=== PATIENT | male | born 1950 | race Two or more races ===

== ENCOUNTER → 2017-03-31 | Outpatient (CLI) | payer BC ==
[~2017-03-31] MED LIST: LIS20T GT; METF-370 PO; [UNRECOGNIZED DRUG - OTHER]; crestor
[2017-03-31 10:00] LABS: Basophils # (auto) 0 uL; Basophils % (auto) 0.7 % (0.0-2.0); Eosinophils # (auto) 0.1 uL; Eosinophils % (auto) 2.4 % (0.0-7.0); Hematocrit 45.6 % (41.0-53.0); Hemoglobin 15.1 g/dL (13.5-17.5); Lymphocytes # (auto) 2.1 uL; Lymphocytes % (auto) 33.9 % (10.0-50.0); Mean Corpuscular Hemoglobin 29.5 pg (28.0-32.0); Mean Corpuscular Hgb Conc. 33.1 g/dL (32.0-36.0); Mean Corpuscular Volume 89.1 fL (80.0-100.0); Monocytes # (auto) 0.6 uL; Monocytes % (auto) 9.1 % (0.0-12.0); Neutrophils # (auto) 3.4 uL; Neutrophils % (auto) 53.9 % (37.0-80.0); Nucleated Red Blood Cells % 0.1 %; Platelet Count (auto) 311 10^3/uL (140-450); Red Blood Cells 5.12 10^6/uL (4.5-5.90); Red Cell Distribution Width 13.5 % (11.8-14.3); White Blood Cell 6.3 10^3/uL (4.4-10.8)
[2017-03-31 10:01] LABS: Urine Bacteria NONE SEEN /hpf (None Seen); Urine Blood Negative /uL (Negative); Urine Specific Gravity 1.015 (1.001-1.035); Urine WBC <1 /hpf (0 - 3)
[2017-03-31 10:26] LABS: Albumin 3.9 g/dL (3.4-5.0); BUN/Creatinine Ratio 21.7; Bilirubin, Total 0.6 mg/dL (0.2-1.0); Calcium 9.3 mg/dL (8.5-10.1); Potassium 4.1 mmol/L (3.5-5.1); Total Protein 7.8 g/dL (6.4-8.2)
[2017-03-31 13:58] LABS: Prostate Specific Antigen 1.42 ng/mL (0.0-4.0)
[2017-03-31 14:13] LABS: Free T4 (Free Thyroxine) 1.14 ng/dL (0.89-1.76)
== END | disposition home or self-care (01) ==
LOC: LAB 09:30
PROVIDERS: ATTEND Internal Medicine
DX: E11.9 Type 2 diabetes mellitus without complications (principal); R97.20 Elevated prostate specific antigen [PSA]
CPT/HCPCS: 36415; 80053; 80061; 81001; 82043; 82607; 83036; 84153; 84439; 84443; 85025; 85652

== ENCOUNTER 2017-05-01 06:06 | Emergency (ER) | payer BC ==
[~2017-05-01] VITALS: Ht 160 cm; Wt 71.7 kg
[2017-05-01] MEDS ORDERED: cloNIDine HCL 0.1 MG TAB PO ONE (06:30)
[2017-05-01 06:40] VITALS: BP 189/94
== END 2017-05-01 07:04 | disposition home or self-care (01) ==
LOC: ER 06:11
DX: L03.211 Cellulitis of face (principal)
CPT/HCPCS: 82962

== ENCOUNTER → 2017-05-03 | Outpatient (CLI) | payer BC | END | disposition home or self-care (01) | LOC: XY 09:33 | PROVIDERS: ATTEND Internal Medicine | DX: M79.604 Pain in right leg (principal); E11.9 Type 2 diabetes mellitus without complications; R20.0 Anesthesia of skin | CPT/HCPCS: 93923; 93925 ==

== ENCOUNTER → 2017-09-21 | Outpatient (CLI) | payer BC ==
[2017-09-21 10:21] LABS: Alanine Aminotransferase 30 U/L (16-61); Aspartate Aminotransferase 16 U/L (15-37)
[2017-09-21 15:56] LABS: Cholesterol 197 mg/dL (< 200); HDL Cholesterol 80 mg/dL (40-59); LDL Cholesterol 107 mg/dL (< 100); Triglycerides 65 mg/dL (< 150)
== END | disposition home or self-care (01) ==
LOC: LAB 09:05
PROVIDERS: ATTEND Internal Medicine
DX: E11.9 Type 2 diabetes mellitus without complications (principal); E78.00 Pure hypercholesterolemia, unspecified; I10 Essential (primary) hypertension
CPT/HCPCS: 36415; 80061; 83036; 84450; 84460

== ENCOUNTER → 2018-07-28 | Outpatient (CLI) | payer BC ==
[2018-07-28 11:06] LABS: Urine WBC None Seen /hpf (0 - 3)
[2018-07-28 11:21] LABS: Urine Bacteria NONE SEEN /hpf (None Seen); Urine Blood TRACE /uL (Negative); Urine Mucus FEW (None Seen); Urine Specific Gravity 1.015 (1.001-1.035)
[2018-07-28 12:01] LABS: Albumin 3.9 g/dL (3.4-5.0); Potassium 5.1 mmol/L (3.5-5.1)
[2018-07-28 12:09] LABS: BUN/Creatinine Ratio 22.1; Bilirubin, Total 0.5 mg/dL (0.2-1.0); Calcium 9.8 mg/dL (8.5-10.1); Total Protein 8.1 g/dL (6.4-8.2)
[2018-07-28 12:12] LABS: Free T4 (Free Thyroxine) 1.22 ng/dL (0.89-1.76); Prostate Specific Antigen 1.41 ng/mL (0.0-4.0)
[2018-07-28 18:47] LABS: Basophils # (auto) 0 uL; Basophils % (auto) 0.6 % (0.0-2.0); Eosinophils # (auto) 0.2 uL; Eosinophils % (auto) 2.2 % (0.0-7.0); Hematocrit 50.1 % (41.0-53.0); Hemoglobin 15.9 g/dL (13.5-17.5); Lymphocytes # (auto) 1.9 uL; Lymphocytes % (auto) 26.1 % (10.0-50.0); Mean Corpuscular Hemoglobin 29.5 pg (28.0-32.0); Mean Corpuscular Hgb Conc. 31.7 g/dL (32.0-36.0); Mean Corpuscular Volume 92.9 fL (80.0-100.0); Monocytes # (auto) 0.6 uL; Monocytes % (auto) 8.4 % (0.0-12.0); Neutrophils # (auto) 4.6 uL; Neutrophils % (auto) 62.7 % (37.0-80.0); Nucleated Red Blood Cells % 0.1 %; Platelet Count (auto) 374 10^3/uL (140-450); Red Cell Distribution Width 13.3 % (11.8-14.3); White Blood Cell 7.3 10^3/uL (4.4-10.8)
== END | disposition home or self-care (01) ==
LOC: LAB 10:08
PROVIDERS: ATTEND Internal Medicine
DX: E11.9 Type 2 diabetes mellitus without complications (principal); F52.21 Male erectile disorder
CPT/HCPCS: 36415; 80053; 80061; 81001; 82043; 82607; 83036; 84153; 84403; 84439; 84443; 85025; 85652

== ENCOUNTER 2019-03-05 11:44 | Emergency (ER) | payer BC, OTHER ==
[~2019-03-05] VITALS: Ht 160 cm; Wt 68.0 kg
[2019-03-05 14:59] VITALS: BP 131/74
[2019-03-05] MEDS ORDERED: ACETAMINOPHEN/CODEINE#3 (300/30mg) TAB PO ONE (15:15)
== END 2019-03-05 15:45 | disposition home or self-care (01) ==
LOC: ER 11:45
DX: S80.212A Abrasion, left knee, initial encounter (principal); E11.9 Type 2 diabetes mellitus without complications; I10 Essential (primary) hypertension; E78.00 Pure hypercholesterolemia, unspecified; Z79.899 Other long term (current) drug therapy; W18.39XA Other fall on same level, initial encounter; Y93.89 Activity, other specified; Y92.89 Other specified places as the place of occurrence of the external cause; Y99.0 Civilian activity done for income or pay
CPT/HCPCS: 72220; 73562

== ENCOUNTER → 2020-12-09 | Outpatient (CLI) | payer BC | END | disposition home or self-care (01) | LOC: XY 09:43 | PROVIDERS: ATTEND Internal Medicine | DX: I73.9 Peripheral vascular disease, unspecified (principal) | CPT/HCPCS: 93926 ==

== ENCOUNTER 2020-12-25 17:45 | Inpatient (IN) | payer BC, MEDICARE ==
[~2020-12-25] VITALS: Ht 160 cm; Wt 70.1 kg
[~2020-12-25 17:45] MED LIST changes: -LIS20T GT
[2020-12-25 18:17] VITALS: BP 155/78
[2020-12-25] MEDS ORDERED: ACETAMINOPHEN 325 MG TAB PO PRN (18:45)
[2020-12-25] MEDS ORDERED: TEMAZEPAM 15 MG CAP PO PRN (18:45)
[2020-12-25] MEDS ORDERED: HYDROcodone-ACET 5/325MG TAB PO PRN (18:45)
[2020-12-25] MEDS ORDERED: DOCUSATE SOD 100 MG CAP PO PRN (18:45)
[2020-12-25] MEDS ORDERED: NITROGLYCERIN 0.4 MG SL TAB SL PRN (18:45)
[2020-12-25] MEDS ORDERED: MORPHINE SULF INJ 2 MG/ML SYRINGE 1ML IV PRN ×2 (18:45)
[2020-12-25] MEDS ORDERED: ONDANSETRON HCL 4 MG/2 ML VIAL IV PRN (18:45)
[2020-12-25] MEDS ORDERED: DEXTROSE (50%) 50ML SYRG IV PRN (18:45)
[2020-12-25] MEDS ORDERED: ROSU20TA14 PO (19:55)
[2020-12-25] MEDS ORDERED: ASPI-543 PO (19:55)
[2020-12-25] MEDS ORDERED: LISI40TA11 PO (19:55)
[2020-12-25 20:08] LABS: Basophils # (auto) 0.1 10 ^3/uL (0-0.2); Basophils % (auto) 0.6 % (0.0-2.0); Eosinophils # (auto) 0.1 10 ^3/uL (0-0.8); Eosinophils % (auto) 1.5 % (0.0-7.0); Hematocrit 42.6 % (41.0-53.0); Lymphocytes # (auto) 2.2 10 ^3/uL (0.4-5.4); Lymphocytes % (auto) 24.8 % (10.0-50.0); Mean Corpuscular Hemoglobin 29.7 pg (28.0-32.0); Monocytes # (auto) 0.7 10 ^3/uL (0-1.3); Monocytes % (auto) 7.8 % (0.0-12.0); Neutrophils # (auto) 5.7 10 ^3/uL (1.6-8.6); Neutrophils % (auto) 65.3 % (37.0-80.0); Nucleated Red Blood Cells % 0.1 %; Red Blood Cells 4.73 10^6/uL (4.5-5.90); Red Cell Distribution Width 13.5 % (11.8-14.3); White Blood Cell 8.8 10^3/uL (4.4-10.8)
[2020-12-25 22:20] VITALS: BP 145/78
[2020-12-25] MEDS: SOD CHL 0.45% 1,000 ML IV SCH (22:43)
[2020-12-25] MEDS: ATORVASTATIN 20 MG TAB PO SCH (22:46)
[2020-12-25] MEDS: SODIUM CHLOR 0.9% PF (SALINE LOCK) 10ML VIAL/SYR IV SCH (22:46)
[2020-12-25] MEDS: ENOXAPARIN SOD 60 MG/0.6 ML SYRINGE SC SCH (22:47)
[2020-12-25] MEDS: InsuLIN REG 1unit/0.01ml Soln (100units/ml) SC SCH (22:54)
[2020-12-25] MEDS: ACCU-CHEK COMFORT CURVE STRIP VI SCH (22:54)
[2020-12-26 01:40] LABS: Urine WBC None Seen /hpf (0 - 3)
[2020-12-26 02:08] LABS: Urine Bacteria NONE SEEN /hpf (None Seen); Urine Blood Negative /uL (Negative); Urine Specific Gravity 1.011 (1.001-1.035)
[2020-12-26 05:15] VITALS: BP 146/81
[2020-12-26] MEDS: SODIUM CHLOR 0.9% PF (SALINE LOCK) 10ML VIAL/SYR IV SCH ×3 (05:52→21:32)
[2020-12-26] MEDS: LEVOTHYROXINE SODIUM 25 MCG TAB PO SCH (05:52)
[2020-12-26 06:05] LABS: INR 1.01 (0.9-1.15); Partial Thromboplastin Time 32.2 sec (23.0-31.2)
[2020-12-26] MEDS: ACCU-CHEK COMFORT CURVE STRIP VI SCH ×4 (06:12→21:26)
[2020-12-26] MEDS: InsuLIN REG 1unit/0.01ml Soln (100units/ml) SC SCH ×4 (06:12→22:45)
[2020-12-26 06:26] LABS: BUN/Creatinine Ratio 19.4; Calcium 8.7 mg/dL (8.5-10.1); Potassium 4.3 mmol/L (3.5-5.1)
[2020-12-26] MEDS: ENOXAPARIN SOD 60 MG/0.6 ML SYRINGE SC SCH (07:16)
[2020-12-26] MEDS: ASPirin 81 mg TAB PO SCH ×2 (07:16→10:35)
[2020-12-26] MEDS: SOD CHL 0.45% 1,000 ML IV SCH ×2 (08:35→21:32)
[2020-12-26 09:00] VITALS: BP 141/72
[2020-12-26] MEDS: LISINOPRIL 20 MG TAB PO SCH (10:36)
[2020-12-26] MEDS ORDERED: LIDOCAINE 2%HCL (LOCAL ANESTH.) INJ 20ML MDV ONE (11:48)
[2020-12-26] MEDS ORDERED: IODIXANOL 320MG/ML 100ML BTL IV ONE ×2 (11:48→12:59)
[2020-12-26] MEDS ORDERED: ANGIOMAX 250 MG VIAL IV ONE (12:04)
[2020-12-26] MEDS ORDERED: GLYCOPYRROLATE 0.2 MG/ML 1ML VIAL ONE (12:04)
[2020-12-26] MEDS ORDERED: PHENYLEPHRINE HCL 10 MG/ML VL ONE (12:04)
[2020-12-26] MEDS ORDERED: SODIUM CHL 0.9% 50 ML ONE (12:04)
[2020-12-26] MEDS ORDERED: PHENYLEPHRINE IV 0 ML IV ONE (12:39)
[2020-12-26] MEDS ORDERED: fentaNYL CITRATE 100 MCG/2 ML VL ONE (12:40)
[2020-12-26] MEDS ORDERED: HEPARIN SODIUM (PORCINE) 5000 UNITS/ML 1ML VIAL ONE (13:02)
[2020-12-26] MEDS ORDERED: MIDAZOLAM HCL 2MG/2ML 2ml VIAL (1mg/ml) ONE (13:05)
[2020-12-26] MEDS ORDERED: CLOPIDOGREL 300 MG TAB ONE (13:34)
[2020-12-26 17:14] VITALS: BP_SYST 121
[2020-12-26] MEDS: ATORVASTATIN 20 MG TAB PO SCH (21:26)
[2020-12-27 04:54] VITALS: BP 131/71
[2020-12-27 06:00] LABS: Basophils # (auto) 0.1 10 ^3/uL (0-0.2); Basophils % (auto) 0.7 % (0.0-2.0); Eosinophils # (auto) 0.1 10 ^3/uL (0-0.8); Hematocrit 39.5 % (41.0-53.0); Hemoglobin 13.3 g/dL (13.5-17.5); Lymphocytes # (auto) 1.6 10 ^3/uL (0.4-5.4); Lymphocytes % (auto) 15.7 % (10.0-50.0); Mean Corpuscular Hemoglobin 29.9 pg (28.0-32.0); Mean Corpuscular Hgb Conc. 33.7 g/dL (32.0-36.0); Mean Corpuscular Volume 88.7 fL (80.0-100.0); Monocytes # (auto) 0.9 10 ^3/uL (0-1.3); Monocytes % (auto) 9.4 % (0.0-12.0); Neutrophils # (auto) 7.3 10 ^3/uL (1.6-8.6); Neutrophils % (auto) 73.2 % (37.0-80.0); Red Blood Cells 4.46 10^6/uL (4.5-5.90); Red Cell Distribution Width 13.7 % (11.8-14.3)
[2020-12-27 06:17] LABS: Potassium 4.1 mmol/L (3.5-5.1)
[2020-12-27 06:21] LABS: BUN/Creatinine Ratio 17.9; Calcium 8.2 mg/dL (8.5-10.1)
[2020-12-27] MEDS: ACCU-CHEK COMFORT CURVE STRIP VI SCH ×4 (06:30→21:53)
[2020-12-27] MEDS: SODIUM CHLOR 0.9% PF (SALINE LOCK) 10ML VIAL/SYR IV SCH ×3 (06:30→21:53)
[2020-12-27] MEDS: LEVOTHYROXINE SODIUM 25 MCG TAB PO SCH (06:31)
[2020-12-27] MEDS: InsuLIN REG 1unit/0.01ml Soln (100units/ml) SC SCH ×4 (06:37→21:57)
[2020-12-27 09:00] VITALS: BP_SYST 120; BP_SYST 96; BP_DIAS 51; BP_DIAS 74
[2020-12-27] MEDS: ENOXAPARIN SOD 60 MG/0.6 ML SYRINGE SC SCH (09:41)
[2020-12-27] MEDS: CLOPIDOGREL BISULFATE 75 MG TAB PO SCH (09:41)
[2020-12-27] MEDS: ASPirin-EC 81 mg tab PO SCH (09:41)
[2020-12-27] MEDS: LISINOPRIL 20 MG TAB PO SCH (09:42)
[2020-12-27] MEDS: SOD CHL 0.45% 1,000 ML IV SCH (10:00)
[2020-12-27 13:00] VITALS: BP 125/66
[2020-12-27 17:00] VITALS: BP 135/77
[2020-12-27] MEDS: ATORVASTATIN 20 MG TAB PO SCH (21:53)
[2020-12-27 22:00] VITALS: BP 145/73
[2020-12-28 05:00] VITALS: BP 155/83
[2020-12-28 05:27] LABS: Basophils # (auto) 0 10 ^3/uL (0-0.2); Basophils % (auto) 0.7 % (0.0-2.0); Eosinophils # (auto) 0.2 10 ^3/uL (0-0.8); Eosinophils % (auto) 2.4 % (0.0-7.0); Hematocrit 38.9 % (41.0-53.0); Hemoglobin 13.1 g/dL (13.5-17.5); Lymphocytes # (auto) 2.3 10 ^3/uL (0.4-5.4); Lymphocytes % (auto) 31.1 % (10.0-50.0); Mean Corpuscular Hgb Conc. 33.7 g/dL (32.0-36.0); Monocytes # (auto) 0.9 10 ^3/uL (0-1.3); Monocytes % (auto) 12.1 % (0.0-12.0); Neutrophils % (auto) 53.7 % (37.0-80.0); Nucleated Red Blood Cells % 0.1 %; Red Blood Cells 4.37 10^6/uL (4.5-5.90); Red Cell Distribution Width 13.8 % (11.8-14.3); White Blood Cell 7.4 10^3/uL (4.4-10.8)
[2020-12-28 05:47] LABS: Albumin 3.2 g/dL (3.4-5.0); Calcium 8.5 mg/dL (8.5-10.1); Potassium 4.1 mmol/L (3.5-5.1)
[2020-12-28 05:52] LABS: BUN/Creatinine Ratio 21.2; Bilirubin, Total 0.6 mg/dL (0.2-1.0); Total Protein 6.7 g/dL (6.4-8.2)
[2020-12-28] MEDS: SOD CHL 0.45% 1,000 ML IV SCH ×2 (06:18→15:46)
[2020-12-28] MEDS: SODIUM CHLOR 0.9% PF (SALINE LOCK) 10ML VIAL/SYR IV SCH ×3 (06:18→22:18)
[2020-12-28] MEDS: InsuLIN REG 1unit/0.01ml Soln (100units/ml) SC SCH ×4 (07:00→22:20)
[2020-12-28] MEDS: ACCU-CHEK COMFORT CURVE STRIP VI SCH ×4 (07:03→22:19)
[2020-12-28] MEDS: LEVOTHYROXINE SODIUM 25 MCG TAB PO SCH (07:03)
[2020-12-28 09:00] VITALS: BP 167/90
[2020-12-28] MEDS: ASPirin-EC 81 mg tab PO SCH (09:38)
[2020-12-28] MEDS: LISINOPRIL 20 MG TAB PO SCH (09:38)
[2020-12-28] MEDS: ENOXAPARIN SOD 60 MG/0.6 ML SYRINGE SC SCH (09:38)
[2020-12-28] MEDS: CLOPIDOGREL BISULFATE 75 MG TAB PO SCH (09:38)
[2020-12-28] MEDS ORDERED: cloNIDine HCL 0.1 MG TAB PO PRN (11:45)
[2020-12-28 12:57] VITALS: BP 148/40
[2020-12-28 16:51] VITALS: BP 122/52
[2020-12-28 22:00] VITALS: BP 155/76
[2020-12-28] MEDS: ATORVASTATIN 20 MG TAB PO SCH (22:19)
[2020-12-29] MEDS: SOD CHL 0.45% 1,000 ML IV SCH (04:52)
[2020-12-29 05:00] VITALS: BP 150/75
[2020-12-29 06:07] LABS: Basophils # (auto) 0.1 10 ^3/uL (0-0.2); Basophils % (auto) 0.7 % (0.0-2.0); Eosinophils # (auto) 0.2 10 ^3/uL (0-0.8); Eosinophils % (auto) 1.9 % (0.0-7.0); Hematocrit 38.5 % (41.0-53.0); Hemoglobin 13.1 g/dL (13.5-17.5); Lymphocytes # (auto) 2.1 10 ^3/uL (0.4-5.4); Lymphocytes % (auto) 25.1 % (10.0-50.0); Mean Corpuscular Hemoglobin 30.1 pg (28.0-32.0); Mean Corpuscular Hgb Conc. 33.9 g/dL (32.0-36.0); Mean Corpuscular Volume 88.6 fL (80.0-100.0); Monocytes % (auto) 11.5 % (0.0-12.0); Neutrophils # (auto) 5.1 10 ^3/uL (1.6-8.6); Neutrophils % (auto) 60.8 % (37.0-80.0); Red Blood Cells 4.35 10^6/uL (4.5-5.90); Red Cell Distribution Width 13.6 % (11.8-14.3); White Blood Cell 8.5 10^3/uL (4.4-10.8)
[2020-12-29 06:26] LABS: BUN/Creatinine Ratio 23.1; Calcium 8.5 mg/dL (8.5-10.1); Potassium 3.9 mmol/L (3.5-5.1)
[2020-12-29] MEDS: ACCU-CHEK COMFORT CURVE STRIP VI SCH ×4 (06:58→21:54)
[2020-12-29] MEDS: InsuLIN REG 1unit/0.01ml Soln (100units/ml) SC SCH ×4 (06:58→22:00)
[2020-12-29] MEDS: LEVOTHYROXINE SODIUM 25 MCG TAB PO SCH (06:58)
[2020-12-29] MEDS: SODIUM CHLOR 0.9% PF (SALINE LOCK) 10ML VIAL/SYR IV SCH ×3 (06:59→21:54)
[2020-12-29 09:00] VITALS: BP 146/81
[2020-12-29] MEDS ORDERED: IODIXANOL 320MG/ML 100ML BTL IV ONE ×2 (09:31→11:34)
[2020-12-29] MEDS ORDERED: LIDOCAINE 2%HCL (LOCAL ANESTH.) INJ 20ML MDV ONE (09:31)
[2020-12-29] MEDS ORDERED: IOHEXOL 350 MG/ML 100ML IJ ONE (09:41)
[2020-12-29] MEDS ORDERED: GLYCOPYRROLATE 0.2 MG/ML 1ML VIAL ONE (09:57)
[2020-12-29] MEDS ORDERED: ANGIOMAX 250 MG VIAL IV ONE (09:58)
[2020-12-29] MEDS ORDERED: SODIUM CHL 0.9% 50 ML ONE (09:58)
[2020-12-29] MEDS: ASPirin-EC 81 mg tab PO SCH (10:00)
[2020-12-29] MEDS: ENOXAPARIN SOD 60 MG/0.6 ML SYRINGE SC SCH (10:00)
[2020-12-29] MEDS: CLOPIDOGREL BISULFATE 75 MG TAB PO SCH (10:00)
[2020-12-29] MEDS ORDERED: hydrALAZINE HCL 20 MG/ML VL ONE (11:07)
[2020-12-29] MEDS ORDERED: ASPirin 81 mg TAB ONE (12:01)
[2020-12-29] MEDS ORDERED: CLOPIDOGREL BISULFATE 75 MG TAB ONE (12:01)
[2020-12-29] MEDS: LISINOPRIL 20 MG TAB PO SCH (13:56)
[2020-12-29 14:00] VITALS: BP 129/78
[2020-12-29] MEDS ORDERED: METF-879 PO (14:52)
[2020-12-29] MEDS ORDERED: LISI20TA28 PO (14:52)
[2020-12-29] MEDS ORDERED: OMEG100078 PO (14:53)
[2020-12-29] MEDS ORDERED: CLOP75TA28 PO (16:05)
[2020-12-29] MEDS ORDERED: LEV25T PO (16:08)
[2020-12-29 17:00] VITALS: BP 121/60
[2020-12-29] MEDS: ATORVASTATIN 20 MG TAB PO SCH (21:56)
[2020-12-29 22:17] VITALS: BP 125/65
[2020-12-30 05:22] VITALS: BP 103/56
[2020-12-30 05:45] LABS: BUN/Creatinine Ratio 19.8; Potassium 4.1 mmol/L (3.5-5.1)
[2020-12-30] MEDS: SODIUM CHLOR 0.9% PF (SALINE LOCK) 10ML VIAL/SYR IV SCH ×2 (05:45→14:05)
[2020-12-30 05:48] LABS: Basophils # (auto) 0 10 ^3/uL (0-0.2); Basophils % (auto) 0.5 % (0.0-2.0); Eosinophils # (auto) 0.2 10 ^3/uL (0-0.8); Eosinophils % (auto) 2.4 % (0.0-7.0); Hematocrit 36.9 % (41.0-53.0); Hemoglobin 12.4 g/dL (13.5-17.5); Lymphocytes # (auto) 2.2 10 ^3/uL (0.4-5.4); Mean Corpuscular Hemoglobin 29.9 pg (28.0-32.0); Mean Corpuscular Hgb Conc. 33.6 g/dL (32.0-36.0); Mean Corpuscular Volume 89.1 fL (80.0-100.0); Monocytes # (auto) 1.2 10 ^3/uL (0-1.3); Monocytes % (auto) 14.2 % (0.0-12.0); Neutrophils # (auto) 4.8 10 ^3/uL (1.6-8.6); Neutrophils % (auto) 56.9 % (37.0-80.0); Nucleated Red Blood Cells % 0.2 %; Red Blood Cells 4.14 10^6/uL (4.5-5.90); Red Cell Distribution Width 13.6 % (11.8-14.3); White Blood Cell 8.4 10^3/uL (4.4-10.8)
[2020-12-30] MEDS: ACCU-CHEK COMFORT CURVE STRIP VI SCH ×2 (05:49→12:52)
[2020-12-30] MEDS: LEVOTHYROXINE SODIUM 25 MCG TAB PO SCH (05:50)
[2020-12-30] MEDS: InsuLIN REG 1unit/0.01ml Soln (100units/ml) SC SCH ×2 (06:03→12:52)
[2020-12-30 09:00] VITALS: BP 105/45
[2020-12-30] MEDS: ASPirin-EC 81 mg tab PO SCH (09:38)
[2020-12-30] MEDS: CLOPIDOGREL BISULFATE 75 MG TAB PO SCH (09:38)
[2020-12-30] MEDS: ENOXAPARIN SOD 60 MG/0.6 ML SYRINGE SC SCH (09:39)
[2020-12-30] MEDS: LISINOPRIL 20 MG TAB PO SCH (10:00)
[2020-12-30 12:30] VITALS: BP 122/58
[2020-12-30 16:31] VITALS: BP 122/58
[2020-12-30 17:00] VITALS: BP 120/61
== END 2020-12-30 17:40 | disposition home or self-care (01) | DRG 35 ==
LOC: TELE-EAST 17:45 → INTOOBSV 17:45 → TELE-WESTW 12-26 21:35 → OBSVTOIN 12-27 11:45
PROVIDERS: ADMIT Internal Medicine; ATTEND Internal Medicine
PROC: 047N3Z1 Dilation of Left Popliteal Artery using Drug-Coated Balloon, Percutaneous Approach (ICD-10-PCS; principal; 2020-12-26)
PROC: 047U3Z1 Dilation of Left Peroneal Artery using Drug-Coated Balloon, Percutaneous Approach (ICD-10-PCS; 2020-12-26)
PROC: B3131ZZ Fluoroscopy of Right Common Carotid Artery using Low Osmolar Contrast (ICD-10-PCS; 2020-12-26)
PROC: B3141ZZ Fluoroscopy of Left Common Carotid Artery using Low Osmolar Contrast (ICD-10-PCS; 2020-12-26)
PROC: B41F1ZZ Fluoroscopy of Right Lower Extremity Arteries using Low Osmolar Contrast (ICD-10-PCS; 2020-12-26)
PROC: 037K3DZ Dilation of Right Internal Carotid Artery with Intraluminal Device, Percutaneous Approach (ICD-10-PCS; 2020-12-30)
DX: I65.23 Occlusion and stenosis of bilateral carotid arteries (principal); E87.1 Hypo-osmolality and hyponatremia; I70.209 Unspecified atherosclerosis of native arteries of extremities, unspecified extremity; Z20.822 Contact with and (suspected) exposure to COVID-19; E03.9 Hypothyroidism, unspecified; E11.51 Type 2 diabetes mellitus with diabetic peripheral angiopathy without gangrene; E78.5 Hyperlipidemia, unspecified; I10 Essential (primary) hypertension; Z82.49 Family history of ischemic heart disease and other diseases of the circulatory system; Z83.3 Family history of diabetes mellitus; Z86.73 Personal history of transient ischemic attack (TIA), and cerebral infarction without residual deficits; Z87.891 Personal history of nicotine dependence; Z79.899 Other long term (current) drug therapy; Z79.891 Long term (current) use of opiate analgesic; Z79.01 Long term (current) use of anticoagulants; Z79.82 Long term (current) use of aspirin
CPT/HCPCS: 36415; 37228; 71045; 80048; 80053; 80061; 81001; 82306; 82962; 84443; 85025; 85610; 85730; 86850; 86900; 86901; 87426; 93306; 93886; 99152; 99153; C1725; G0378; J1815; J2250; Q9967

== ENCOUNTER 2021-04-01 06:55 | Inpatient (IN) | payer OTHER ==
[2021-04-01] VITALS (17 sets, daily range): BP systolic 68–101; BP diastolic 37–57
[~2021-04-01] VITALS: Ht 160 cm; Wt 71.2 kg
[~2021-04-01 06:55] MED LIST changes: +ASPI-543 PO; +CLOP75TA28 PO; +LEV25T PO; +LISI20TA28 PO; -METF-370 PO; +METF-371 PO; +OMEG100078 PO; +ROSU40TA PO; -[UNRECOGNIZED DRUG - OTHER]; -crestor
[2021-04-01] MEDS ORDERED: ATROPINE SULF 1 MG/10ml SYR ONE (09:49)
[2021-04-01] MEDS ORDERED: GLYCOPYRROLATE 0.2 MG/ML 1ML VIAL ONE (09:49)
[2021-04-01] MEDS ORDERED: SODIUM CHL 0.9% 50 ML ONE (09:49)
[2021-04-01] MEDS ORDERED: ANGIOMAX 250 MG VIAL IV ONE (09:49)
[2021-04-01] MEDS ORDERED: LIDOCAINE 2%HCL (LOCAL ANESTH.) INJ 20ML MDV ONE (09:50)
[2021-04-01] MEDS ORDERED: IOHEXOL 350 MG/ML 100ML IJ ONE ×2 (09:50→10:46)
[2021-04-01] MEDS ORDERED: hydrALAZINE HCL 20 MG/ML VL ONE (10:00)
[2021-04-01] MEDS ORDERED: PHENYLEPHRINE HCL 10 MG/ML VL ONE ×2 (11:12→12:02)
[2021-04-01] MEDS ORDERED: CLOPIDOGREL BISULFATE 75 MG TAB ONE (11:22)
[2021-04-01] MEDS ORDERED: MORPHINE SULFATE INJECTION 2 MG/ML SYRG IV PRN (11:45)
[2021-04-01] MEDS ORDERED: NITROGLYCERIN 0.4 MG SL TAB SL PRN (11:45)
[2021-04-01] MEDS ORDERED: CLOP75TA28 PO (11:55)
[2021-04-01] MEDS ORDERED: LEVO25TA6 PO (11:55)
[2021-04-01] MEDS ORDERED: ALBUAER3 IN (12:07)
[2021-04-01] MEDS: SODIUM CHLOR 0.9% PF (SALINE LOCK) 10ML VIAL/SYR IV SCH ×2 (14:08→21:48)
[2021-04-01] MEDS ORDERED: ALBUMIN 25% 100 ML IV ONE ×2 (14:41→14:45)
[2021-04-01] MEDS: D5W/SOD CHL 0.45% 1,000 ML IV SCH (16:05)
[2021-04-01] MEDS: MIDODRINE HCL 10 MG TAB PO PRN (16:21)
[2021-04-01] MEDS: ACETAMINOPHEN 325 MG TAB PO PRN (18:49)
[2021-04-02] MEDS: MIDODRINE HCL 10 MG TAB PO PRN (04:28)
[2021-04-02] MEDS: ACETAMINOPHEN 325 MG TAB PO PRN ×2 (04:28→14:41)
[2021-04-02 05:00] VITALS: BP 92/47
[2021-04-02] MEDS: SODIUM CHLOR 0.9% PF (SALINE LOCK) 10ML VIAL/SYR IV SCH ×3 (05:36→21:27)
[2021-04-02] MEDS: D5W/SOD CHL 0.45% 1,000 ML IV SCH (05:36)
[2021-04-02 09:00] VITALS: BP 99/53
[2021-04-02] MEDS ORDERED: D5W/SOD CHLO 0.9% 1,000 ML IV SCH (10:00)
[2021-04-02] MEDS: ASPirin-EC 81 mg tab PO SCH (10:40)
[2021-04-02] MEDS: PANTOPRAZOLE 40 MG TAB PO SCH (10:41)
[2021-04-02] MEDS: CLOPIDOGREL BISULFATE 75 MG TAB PO SCH (10:41)
[2021-04-02 12:05] LABS: Basophils # (auto) 0.1 10 ^3/uL (0-0.2); Basophils % (auto) 0.7 % (0.0-2.0); Eosinophils # (auto) 0.1 10 ^3/uL (0-0.8); Eosinophils % (auto) 1.8 % (0.0-7.0); Hematocrit 33.3 % (41.0-53.0); Hemoglobin 11.4 g/dL (13.5-17.5); Lymphocytes # (auto) 1.6 10 ^3/uL (0.4-5.4); Mean Corpuscular Hemoglobin 30.2 pg (28.0-32.0); Mean Corpuscular Hgb Conc. 34.4 g/dL (32.0-36.0); Monocytes # (auto) 0.7 10 ^3/uL (0-1.3); Monocytes % (auto) 8.9 % (0.0-12.0); Neutrophils % (auto) 67.6 % (37.0-80.0); Nucleated Red Blood Cells % 0.1 %; Red Blood Cells 3.78 10^6/uL (4.5-5.90); Red Cell Distribution Width 12.9 % (11.8-14.3); White Blood Cell 7.4 10^3/uL (4.4-10.8)
[2021-04-02 12:35] LABS: Potassium 4.2 mmol/L (3.5-5.1)
[2021-04-02 12:41] LABS: Albumin 3.3 g/dL (3.4-5.0); BUN/Creatinine Ratio 19.6; Bilirubin, Total 0.5 mg/dL (0.2-1.0); Total Protein 5.8 g/dL (6.4-8.2)
[2021-04-02 12:48] VITALS: BP 113/58
[2021-04-02] MEDS ORDERED: DEXTROSE (50%) 50ML SYRG IV PRN (13:15)
[2021-04-02 16:43] VITALS: BP 99/46
[2021-04-02] MEDS: ACCU-CHEK COMFORT CURVE STRIP VI SCH ×2 (17:00→21:27)
[2021-04-02] MEDS: InsuLIN REG 1unit/0.01ml Soln (100units/ml) SC SCH ×2 (17:53→21:27)
[2021-04-02] MEDS: SODIUM CHLORIDE 0.9% 1,000 ML IV SCH (19:15)
[2021-04-02 22:00] VITALS: BP 152/84
[2021-04-02] MEDS ORDERED: ATORVASTATIN 20 MG TAB PO SCH (22:00)
[2021-04-03] MEDS: SODIUM CHLORIDE 0.9% 1,000 ML IV SCH ×2 (03:22→15:15)
[2021-04-03 05:36] VITALS: BP 116/56
[2021-04-03] MEDS: SODIUM CHLOR 0.9% PF (SALINE LOCK) 10ML VIAL/SYR IV SCH ×2 (05:56→15:39)
[2021-04-03] MEDS: ACCU-CHEK COMFORT CURVE STRIP VI SCH ×2 (05:57→11:02)
[2021-04-03] MEDS: InsuLIN REG 1unit/0.01ml Soln (100units/ml) SC SCH ×2 (06:04→11:05)
[2021-04-03 07:06] LABS: Albumin 3.1 g/dL (3.4-5.0); Potassium 4.4 mmol/L (3.5-5.1)
[2021-04-03 07:10] LABS: BUN/Creatinine Ratio 15.1; Bilirubin, Total 0.5 mg/dL (0.2-1.0); Total Protein 5.6 g/dL (6.4-8.2)
[2021-04-03 08:27] VITALS: BP 100/57
[2021-04-03] MEDS: CLOPIDOGREL BISULFATE 75 MG TAB PO SCH (10:56)
[2021-04-03] MEDS: PANTOPRAZOLE 40 MG TAB PO SCH (10:56)
[2021-04-03] MEDS: ASPirin-EC 81 mg tab PO SCH (10:56)
[2021-04-03 12:30] VITALS: BP 117/53
== END 2021-04-03 16:30 | disposition home or self-care (01) | DRG 36 ==
LOC: CATH 06:55 → INTOOBSV 11:30 → OBSVTOIN 11:30 → TELE 11:30 → TELE-WESTW 17:34
PROVIDERS: ADMIT Internal Medicine; ATTEND Internal Medicine
PROC: 037L3DZ Dilation of Left Internal Carotid Artery with Intraluminal Device, Percutaneous Approach (ICD-10-PCS; principal; 2021-04-01)
DX: I65.22 Occlusion and stenosis of left carotid artery (principal); Z20.822 Contact with and (suspected) exposure to COVID-19; I10 Essential (primary) hypertension; E11.51 Type 2 diabetes mellitus with diabetic peripheral angiopathy without gangrene; E78.5 Hyperlipidemia, unspecified; Z79.02 Long term (current) use of antithrombotics/antiplatelets; Z86.73 Personal history of transient ischemic attack (TIA), and cerebral infarction without residual deficits
CPT/HCPCS: 36415; 80053; 82962; 85025; 96365; 96372; 99152; 99153; G0378; J1815; P9047

== ENCOUNTER → 2021-08-03 | Outpatient (CLI) | payer OTHER ==
[~2021-08-03] MED LIST changes: +ALBUAER3 IN; -LEV25T PO; +LEVO25TA6 PO
[2021-08-03 11:32] LABS: Basophils # (auto) 0 10 ^3/uL (0-0.2); Basophils % (auto) 0.6 % (0.0-2.0); Eosinophils # (auto) 0.1 10 ^3/uL (0-0.8); Eosinophils % (auto) 1.8 % (0.0-7.0); Hematocrit 40.5 % (41.0-53.0); Hemoglobin 13.7 g/dL (13.5-17.5); Lymphocytes # (auto) 1.9 10 ^3/uL (0.4-5.4); Lymphocytes % (auto) 32.5 % (10.0-50.0); Mean Corpuscular Hemoglobin 29.5 pg (28.0-32.0); Mean Corpuscular Hgb Conc. 33.8 g/dL (32.0-36.0); Mean Corpuscular Volume 87.4 fL (80.0-100.0); Monocytes # (auto) 0.5 10 ^3/uL (0-1.3); Monocytes % (auto) 9.1 % (0.0-12.0); Neutrophils # (auto) 3.3 10 ^3/uL (1.6-8.6); Red Blood Cells 4.63 10^6/uL (4.5-5.90); Red Cell Distribution Width 13.3 % (11.8-14.3); White Blood Cell 5.8 10^3/uL (4.4-10.8)
== END | disposition home or self-care (01) ==
LOC: LAB 09:42
PROVIDERS: ATTEND Internal Medicine
DX: E11.9 Type 2 diabetes mellitus without complications (principal); I10 Essential (primary) hypertension
CPT/HCPCS: 36415; 83036; 84439; 84443; 85025

== ENCOUNTER → 2021-12-01 | Outpatient (CLI) | payer OTHER ==
[2021-12-01 08:46] LABS: Basophils # (auto) 0 10 ^3/uL (0-0.2); Basophils % (auto) 0.5 % (0.0-2.0); Eosinophils # (auto) 0.1 10 ^3/uL (0-0.8); Eosinophils % (auto) 2.3 % (0.0-7.0); Hematocrit 41.1 % (41.0-53.0); Hemoglobin 13.5 g/dL (13.5-17.5); Lymphocytes % (auto) 31.5 % (10.0-50.0); Mean Corpuscular Hemoglobin 29.3 pg (28.0-32.0); Mean Corpuscular Hgb Conc. 32.8 g/dL (32.0-36.0); Mean Corpuscular Volume 89.1 fL (80.0-100.0); Monocytes # (auto) 0.6 10 ^3/uL (0-1.3); Monocytes % (auto) 9.5 % (0.0-12.0); Neutrophils # (auto) 3.5 10 ^3/uL (1.6-8.6); Neutrophils % (auto) 56.2 % (37.0-80.0); Nucleated Red Blood Cells % 0.1 %; Red Blood Cells 4.61 10^6/uL (4.5-5.90); Red Cell Distribution Width 14.4 % (11.8-14.3); White Blood Cell 6.2 10^3/uL (4.4-10.8)
[2021-12-01 08:59] LABS: Urine Bacteria NONE SEEN /hpf (None Seen); Urine Blood TRACE /uL (Negative); Urine WBC 1 /hpf (0 - 3)
[2021-12-01 09:12] LABS: Potassium 4.6 mmol/L (3.5-5.1)
[2021-12-01 09:26] LABS: Albumin 3.8 g/dL (3.4-5.0); Bilirubin, Total 0.4 mg/dL (0.2-1.0); Calcium 8.9 mg/dL (8.5-10.1); Total Protein 7.4 g/dL (6.4-8.2)
[2021-12-01 09:31] LABS: Micro Albumin 13.5 mg/L (0-30.0)
[2021-12-01 09:53] LABS: Free T4 (Free Thyroxine) 1.22 ng/dL (0.89-1.76)
[2021-12-01 09:54] LABS: Prostate Specific Antigen 1.39 ng/mL (0.0-4.0)
== END | disposition home or self-care (01) ==
LOC: LAB 08:21
PROVIDERS: ATTEND Internal Medicine
DX: E11.9 Type 2 diabetes mellitus without complications (principal); I10 Essential (primary) hypertension
CPT/HCPCS: 36415; 80053; 80061; 81001; 82043; 82570; 82607; 83036; 84153; 84439; 84443; 85025; 85652

== ENCOUNTER → 2022-04-26 | Outpatient (CLI) | payer OTHER ==
[2022-04-26 12:34] LABS: BUN/Creatinine Ratio 17.3
[2022-04-26 12:35] LABS: Albumin 3.8 g/dL (3.4-5.0); Bilirubin, Total 0.6 mg/dL (0.2-1.0); Calcium 8.9 mg/dL (8.5-10.1); Total Protein 7.4 g/dL (6.4-8.2)
== END | disposition home or self-care (01) ==
LOC: LAB 11:07
PROVIDERS: ATTEND Internal Medicine
DX: E11.9 Type 2 diabetes mellitus without complications (principal); E03.9 Hypothyroidism, unspecified
CPT/HCPCS: 36415; 80053; 83036; 84439; 84443

== ENCOUNTER → 2022-05-05 | Outpatient (CLI) | payer OTHER | END | disposition home or self-care (01) | LOC: XY 09:52 | PROVIDERS: ATTEND Internal Medicine | DX: I65.23 Occlusion and stenosis of bilateral carotid arteries (principal) | CPT/HCPCS: 93886 ==

== ENCOUNTER → 2022-06-22 | Outpatient (CLI) | payer OTHER | END | disposition home or self-care (01) | LOC: LAB 10:42 | PROVIDERS: ATTEND Internal Medicine | DX: I10 Essential (primary) hypertension (principal) | CPT/HCPCS: 36415; 84443 ==

== ENCOUNTER 2022-08-25 07:48 | Day surgery (SDC) | payer OTHER ==
[2022-08-24 11:46] LABS: Basophils # (auto) 0 10 ^3/uL (0-0.2); Basophils % (auto) 0.6 % (0.0-2.0); Eosinophils # (auto) 0.1 10 ^3/uL (0-0.8); Eosinophils % (auto) 2.2 % (0.0-7.0); Hematocrit 40.1 % (41.0-53.0); Hemoglobin 13.4 g/dL (13.5-17.5); Lymphocytes # (auto) 2.1 10 ^3/uL (0.4-5.4); Lymphocytes % (auto) 31.9 % (10.0-50.0); Mean Corpuscular Hemoglobin 29.1 pg (28.0-32.0); Mean Corpuscular Hgb Conc. 33.3 g/dL (32.0-36.0); Mean Corpuscular Volume 87.2 fL (80.0-100.0); Monocytes # (auto) 0.6 10 ^3/uL (0-1.3); Monocytes % (auto) 8.6 % (0.0-12.0); Neutrophils # (auto) 3.8 10 ^3/uL (1.6-8.6); Neutrophils % (auto) 56.7 % (37.0-80.0); Nucleated Red Blood Cells % 0.1 %; Red Blood Cells 4.59 10^6/uL (4.5-5.90); Red Cell Distribution Width 12.9 % (11.8-14.3); White Blood Cell 6.7 10^3/uL (4.4-10.8)
[2022-08-24 12:14] LABS: INR 0.96 (0.9-1.15)
[2022-08-24 12:40] LABS: Albumin 3.5 g/dL (3.4-5.0); Calcium 8.5 mg/dL (8.5-10.1); Potassium 4.1 mmol/L (3.5-5.1)
[2022-08-24 12:43] LABS: BUN/Creatinine Ratio 18.7 (10.0-20.0); Bilirubin, Total 0.4 mg/dL (0.2-1.0); Total Protein 6.9 g/dL (6.4-8.2)
[~2022-08-25] VITALS: Ht 160 cm; Wt 67.1 kg
[~2022-08-25 07:48] MED LIST changes: -ALBUAER3 IN; -OMEG100078 PO
[2022-08-25] MEDS ORDERED: LIDOCAINE 2%HCL (LOCAL ANESTH.) INJ 20ML MDV ONE (09:50)
[2022-08-25] MEDS ORDERED: fentaNYL CITRATE 100 MCG/2 ML VL ONE ×2 (09:54→10:07)
[2022-08-25] MEDS ORDERED: MIDAZOLAM HCL 2MG/2ML 2ml VIAL (1mg/ml) ONE ×2 (09:54→10:08)
[2022-08-25] MEDS ORDERED: SODIUM CHL 0.9% 50 ML ONE (09:54)
[2022-08-25] MEDS ORDERED: ANGIOMAX 250 MG VIAL IV ONE (09:54)
== END 2022-08-25 15:56 | disposition home or self-care (01) ==
LOC: CATH 07:48
PROVIDERS: ATTEND Internal Medicine
DX: E11.51 Type 2 diabetes mellitus with diabetic peripheral angiopathy without gangrene (principal); I70.213 Atherosclerosis of native arteries of extremities with intermittent claudication, bilateral legs; E78.5 Hyperlipidemia, unspecified; Z98.890 Other specified postprocedural states; Z79.899 Other long term (current) drug therapy; Z79.84 Long term (current) use of oral hypoglycemic drugs
CPT/HCPCS: 36415; 37228; 37232; 75716; 80053; 85025; 85610; 85730; C1725; C1769; C1887; C1894; J0583; J1644; J2250; J3010; J7030; U0003; 99152; 99153

== ENCOUNTER → 2023-04-07 | Outpatient (CLI) | payer OTHER ==
[~2023-04-07] MED LIST changes: -LISI20TA28 PO; +LISI20TA56 PO; -ROSU40TA PO; +ROSU40TA81 PO
== END | disposition home or self-care (01) ==
LOC: XYW 07:54
PROVIDERS: ATTEND Internal Medicine
DX: I35.1 Nonrheumatic aortic (valve) insufficiency (principal); I11.9 Hypertensive heart disease without heart failure; R51.9 Headache, unspecified
CPT/HCPCS: 93306

== ENCOUNTER → 2023-04-07 | Outpatient (CLI) | payer OTHER ==
[2023-04-07 08:57] LABS: Basophils # (auto) 0 10 ^3/uL (0-0.2); Basophils % (auto) 0.4 % (0.0-2.0); Eosinophils # (auto) 0.2 10 ^3/uL (0-0.8); Eosinophils % (auto) 2.6 % (0.0-7.0); Hematocrit 38.8 % (41.0-53.0); Hemoglobin 12.8 g/dL (13.5-17.5); Lymphocytes # (auto) 2.3 10 ^3/uL (0.4-5.4); Lymphocytes % (auto) 26.7 % (10.0-50.0); Mean Corpuscular Hemoglobin 29.3 pg (28.0-32.0); Monocytes # (auto) 0.9 10 ^3/uL (0-1.3); Monocytes % (auto) 10.5 % (0.0-12.0); Neutrophils # (auto) 5.2 10 ^3/uL (1.6-8.6); Neutrophils % (auto) 59.8 % (37.0-80.0); Nucleated Red Blood Cells % 0.1 %; Red Blood Cells 4.36 10^6/uL (4.5-5.90); Red Cell Distribution Width 13.2 % (11.8-14.3); White Blood Cell 8.7 10^3/uL (4.4-10.8)
[2023-04-07 09:29] LABS: Alanine Aminotransferase 21 U/L (7-40); Albumin 4.6 g/dL (3.2-4.8); Alkaline Phosphatase 93 U/L (46-116); Anion Gap 4 (5-15); Aspartate Aminotransferase 15 U/L (13-40); BUN/Creatinine Ratio 15.2 (10.0-20.0); Bilirubin, Total 0.4 mg/dL (0.2-1.0); Blood Urea Nitrogen 14 mg/dL (9-23); Calcium 9.5 mg/dL (8.5-10.1); Carbon Dioxide 29 mmol/L (20-30); Chloride 106 mmol/L (98-107); Glucose 164 mg/dL (74-106); Potassium 5.1 mmol/L (3.5-5.1); Sodium 139 mmol/L (136-145)
[2023-04-07 09:30] LABS: Total Protein 6.9 g/dL (5.7-8.2)
== END | disposition home or self-care (01) ==
LOC: LAB 08:43
PROVIDERS: ATTEND Internal Medicine
DX: E11.9 Type 2 diabetes mellitus without complications (principal); I10 Essential (primary) hypertension
CPT/HCPCS: 36415; 80053; 83036; 84153; 85025

== ENCOUNTER → 2023-07-18 | Outpatient (CLI) | payer OTHER ==
[~2023-07-18] VITALS: Ht 160 cm; Wt 67.1 kg
[2023-07-18] MEDS: ADENOSINE 56 MG in GIVE UN-DILUTED 0 ML IV STA (09:54)
== END | disposition home or self-care (01) ==
LOC: XYW 08:03
PROVIDERS: ATTEND Internal Medicine
DX: R00.0 Tachycardia, unspecified (principal); R07.9 Chest pain, unspecified
CPT/HCPCS: 78452; 93017; A9500; J0153

== ENCOUNTER → 2023-08-08 | Outpatient (CLI) | payer OTHER | END | disposition home or self-care (01) | LOC: LAB 09:43 | PROVIDERS: ATTEND Internal Medicine | DX: I10 Essential (primary) hypertension (principal); E11.9 Type 2 diabetes mellitus without complications | CPT/HCPCS: 36415; 83036; 84132 ==

== ENCOUNTER 2023-08-31 08:51 | Inpatient (IN) | payer OTHER ==
[2023-08-29 10:31] LABS: Basophils # (auto) 0 10 ^3/uL (0-0.2); Basophils % (auto) 0.5 % (0.0-2.0); Eosinophils # (auto) 0.2 10 ^3/uL (0-0.8); Hematocrit 41.6 % (41.0-53.0); Hemoglobin 13.6 g/dL (13.5-17.5); Lymphocytes # (auto) 2.2 10 ^3/uL (0.4-5.4); Lymphocytes % (auto) 26.2 % (10.0-50.0); Mean Corpuscular Hemoglobin 28.7 pg (28.0-32.0); Mean Corpuscular Hgb Conc. 32.6 g/dL (32.0-36.0); Mean Corpuscular Volume 88.2 fL (80.0-100.0); Monocytes # (auto) 0.7 10 ^3/uL (0-1.3); Monocytes % (auto) 8.1 % (0.0-12.0); Neutrophils # (auto) 5.2 10 ^3/uL (1.6-8.6); Neutrophils % (auto) 63.2 % (37.0-80.0); Red Blood Cells 4.72 10^6/uL (4.5-5.90); Red Cell Distribution Width 13.1 % (11.8-14.3); White Blood Cell 8.3 10^3/uL (4.4-10.8)
[2023-08-29 10:44] LABS: INR 0.98 (0.9-1.15); Partial Thromboplastin Time 29.2 SEC (24.5-34.5); Prothrombin Time 10.3 sec (9.3-11.8)
[2023-08-29 11:23] LABS: Alanine Aminotransferase 33 U/L (7-40); Albumin 4.9 g/dL (3.2-4.8); Alkaline Phosphatase 87 U/L (46-116); Anion Gap 5 (5-15); Aspartate Aminotransferase 19 U/L (13-40); BUN/Creatinine Ratio 18.8 (10.0-20.0); Bilirubin, Total 0.4 mg/dL (0.2-1.0); Blood Urea Nitrogen 18 mg/dL (9-23); Calcium 10.1 mg/dL (8.5-10.1); Carbon Dioxide 26 mmol/L (20-30); Chloride 107 mmol/L (98-107); Glucose 116 mg/dL (74-106); Potassium 4.8 mmol/L (3.5-5.1); Sodium 138 mmol/L (136-145); Total Protein 7.1 g/dL (5.7-8.2)
[2023-08-31] VITALS (19 sets, daily range): BP systolic 45–162; BP diastolic 25–79; PULSE 47–103; RESP 11–18; TEMP 97.2–98.4; O2SAT 93–99
[~2023-08-31] VITALS: Ht 160 cm; Wt 104.9 kg
[~2023-08-31 08:51] MED LIST changes: +AMLO1TAB22 PO; +CILO100T3 PO; +EMPA1TAB3 PO; +GLIP5TAB21 PO; +TADA5TAB11 PO
[2023-08-31] MEDS ORDERED: fentaNYL CITRATE 100 MCG/2 ML VL ONE (12:12)
[2023-08-31] MEDS ORDERED: ANGIOMAX 250 MG VIAL IV ONE (12:12)
[2023-08-31] MEDS ORDERED: SODIUM CHL 0.9% 50 ML ONE (12:13)
[2023-08-31] MEDS ORDERED: MIDAZOLAM HCL 2MG/2ML 2ml VIAL (1mg/ml) ONE (12:13)
[2023-08-31] MEDS ORDERED: LIDOCAINE 2%HCL (LOCAL ANESTH.) INJ 20ML MDV ONE ×2 (12:13→12:52)
[2023-08-31] MEDS ORDERED: IODIXANOL 320MG/ML 100ML BTL IV ONE ×3 (12:13→12:52)
[2023-08-31] MEDS: ACETAMINOPHEN 325 MG TAB PO ONE ×2 (14:21→14:30)
[2023-08-31] MEDS: SODIUM CHLORIDE 0.9% 1,000 ML IV ONE (14:40)
[2023-08-31] MEDS: NOREPINEPHRINE 8 MG/250ML KIT 250 ML IV ONE (14:45)
[2023-08-31] MEDS: D5W/SOD CHLO 0.9% 1,000 ML IV SCH (15:12)
[2023-08-31] MEDS ORDERED: hydrALAZINE HCL 20 MG/ML VL IV PRN (15:30)
[2023-08-31] MEDS ORDERED: HYDROcodone-ACET 5/325MG TAB PO PRN (15:30)
[2023-08-31] MEDS ORDERED: MORPHINE SULFATE INJ 2 MG/ml SYRG IV PRN ×2 (15:30)
[2023-08-31] MEDS ORDERED: NITROGLYCERIN 0.4 MG SL TAB SL PRN (15:30)
[2023-08-31] MEDS ORDERED: ACETAMINOPHEN 500 MG TAB PO PRN (15:30)
[2023-08-31] MEDS ORDERED: DEXTROSE (50%) 50ML SYRG IV PRN (15:30)
[2023-08-31] MEDS ORDERED: ONDANSETRON HCL 4 MG/2 ML VIAL IV PRN (15:30)
[2023-08-31 16:43] LABS: Basophils # (auto) 0 10 ^3/uL (0-0.2); Basophils % (auto) 0.3 % (0.0-2.0); Eosinophils # (auto) 0.1 10 ^3/uL (0-0.8); Eosinophils % (auto) 0.9 % (0.0-7.0); Hematocrit 35.7 % (41.0-53.0); Hemoglobin 11.7 g/dL (13.5-17.5); Lymphocytes # (auto) 1.2 10 ^3/uL (0.4-5.4); Lymphocytes % (auto) 11.4 % (10.0-50.0); Mean Corpuscular Hemoglobin 28.6 pg (28.0-32.0); Mean Corpuscular Hgb Conc. 32.7 g/dL (32.0-36.0); Mean Corpuscular Volume 87.4 fL (80.0-100.0); Monocytes # (auto) 0.8 10 ^3/uL (0-1.3); Monocytes % (auto) 7.1 % (0.0-12.0); Neutrophils # (auto) 8.6 10 ^3/uL (1.6-8.6); Neutrophils % (auto) 80.3 % (37.0-80.0); Nucleated Red Blood Cells % 0.1 %; Red Blood Cells 4.08 10^6/uL (4.5-5.90); Red Cell Distribution Width 13.6 % (11.8-14.3); White Blood Cell 10.8 10^3/uL (4.4-10.8)
[2023-08-31] MEDS: SODIUM CHLORIDE 0.9% 1,000 ML IV SCH (16:58)
[2023-08-31] MEDS: InsuLIN REG 1unit/0.01ml Soln (100units/ml) SC SCH (17:00)
[2023-08-31] MEDS: ACCU-CHEK COMFORT CURVE STRIP VI SCH (18:53)
[2023-08-31] MEDS: ATORVASTATIN 20 MG TAB PO SCH (22:52)
[2023-09-01 01:01] VITALS: BP 133/60; PULSE 83; RESP 18; TEMP 98.3; O2SAT 98
[2023-09-01 05:00] VITALS: BP 159/61; PULSE 75; RESP 18; TEMP 98.6; O2SAT 98
[2023-09-01 05:57] LABS: Basophils # (auto) 0 10 ^3/uL (0-0.2); Basophils % (auto) 0.4 % (0.0-2.0); Eosinophils # (auto) 0.2 10 ^3/uL (0-0.8); Hematocrit 36.9 % (41.0-53.0); Hemoglobin 12.2 g/dL (13.5-17.5); Lymphocytes # (auto) 1.9 10 ^3/uL (0.4-5.4); Lymphocytes % (auto) 22.9 % (10.0-50.0); Mean Corpuscular Hemoglobin 29.1 pg (28.0-32.0); Mean Corpuscular Hgb Conc. 33.1 g/dL (32.0-36.0); Mean Corpuscular Volume 87.9 fL (80.0-100.0); Monocytes % (auto) 11.6 % (0.0-12.0); Neutrophils # (auto) 5.2 10 ^3/uL (1.6-8.6); Neutrophils % (auto) 63.1 % (37.0-80.0); Red Cell Distribution Width 13.3 % (11.8-14.3); White Blood Cell 8.3 10^3/uL (4.4-10.8)
[2023-09-01 06:00] LABS: Chloride 108 mmol/L (98-107); Sodium 140 mmol/L (136-145)
[2023-09-01 06:01] LABS: Anion Gap 6 (5-15); Calcium 9.2 mg/dL (8.7-10.4); Carbon Dioxide 26 mmol/L (20-30)
[2023-09-01] MEDS: LEVOTHYROXINE SODIUM 50 MCG TAB PO SCH (06:02)
[2023-09-01 06:06] LABS: BUN/Creatinine Ratio 12.9 (10.0-20.0); Blood Urea Nitrogen 11 mg/dL (9-23); Glucose 105 mg/dL (74-106)
[2023-09-01 08:00] VITALS: PULSE 87
[2023-09-01 09:00] VITALS: BP 135/59; PULSE 91; RESP 16; TEMP 97.8; O2SAT 99
[2023-09-01] MEDS: CLOPIDOGREL BISULFATE 75 MG TAB PO SCH (09:10)
[2023-09-01] MEDS: ASPirin 81 mg TAB PO SCH (09:11)
[2023-09-01 10:48] VITALS: TEMP 36.6
== END 2023-09-01 12:47 | disposition home or self-care (01) | DRG 254 ==
LOC: CATH 08:51 → TELE 15:27 → TELE-EAST 17:36
PROVIDERS: ADMIT Internal Medicine; ATTEND Internal Medicine
PROC: 047C3DZ Dilation of Right Common Iliac Artery with Intraluminal Device, Percutaneous Approach (ICD-10-PCS; principal; 2023-08-31)
PROC: B41GYZZ Fluoroscopy of Left Lower Extremity Arteries using Other Contrast (ICD-10-PCS; 2023-08-31)
PROC: B41FYZZ Fluoroscopy of Right Lower Extremity Arteries using Other Contrast (ICD-10-PCS; 2023-08-31)
DX: T82.856A Stenosis of peripheral vascular stent, initial encounter (principal); E11.51 Type 2 diabetes mellitus with diabetic peripheral angiopathy without gangrene; I10 Essential (primary) hypertension; E03.9 Hypothyroidism, unspecified; E78.5 Hyperlipidemia, unspecified; Z79.4 Long term (current) use of insulin; Y84.8 Other medical procedures as the cause of abnormal reaction of the patient, or of later complication, without mention of misadventure at the time of the procedure; Y92.89 Other specified places as the place of occurrence of the external cause
CPT/HCPCS: 36415; 37221; 75716; 80048; 80053; 82962; 85025; 85610; 85730; 99152; C1769; G0378; J1815; J2250; Q9967

== ENCOUNTER → 2024-03-16 | Outpatient (CLI) | payer OTHER ==
[2024-03-16 08:16] LABS: Urine Bacteria None Seen /hpf (None Seen)
[2024-03-16 08:26] LABS: Basophils # (auto) 0.1 10 ^3/uL (0-0.2); Basophils % (auto) 0.9 % (0.0-2.0); Eosinophils # (auto) 0.2 10 ^3/uL (0-0.8); Eosinophils % (auto) 2.8 % (0.0-7.0); Hematocrit 41.8 % (41.0-53.0); Lymphocytes # (auto) 3.3 10 ^3/uL (0.4-5.4); Mean Corpuscular Hemoglobin 29.5 pg (28.0-32.0); Mean Corpuscular Hgb Conc. 33.5 g/dL (32.0-36.0); Monocytes # (auto) 0.7 10 ^3/uL (0-1.3); Monocytes % (auto) 8.5 % (0.0-12.0); Neutrophils # (auto) 4.5 10 ^3/uL (1.6-8.6); Neutrophils % (auto) 50.8 % (37.0-80.0); Nucleated Red Blood Cells % 0.1 %; Platelet Count (auto) 316 10^3/uL (140-450); Red Blood Cells 4.76 10^6/uL (4.5-5.90); Red Cell Distribution Width 14.2 % (11.8-14.3); White Blood Cell 8.8 10^3/uL (4.4-10.8)
[2024-03-16 08:42] LABS: Urine Blood Negative /uL (Negative); Urine Clarity Clear (Clear); Urine Color Light-Yellow (Yellow); Urine Protein, UAD Negative (Negative); Urine Specific Gravity 1.019 (1.001-1.035); Urine Urobilinogen Normal (Negative); Urine WBC <1 /hpf (0 - 3); Urine pH 5.5 (5.0-9.0)
[2024-03-16 09:03] LABS: Erythrocyte Sedimentation Rate 14 mm/hr (0-20)
[2024-03-16 09:14] LABS: Alanine Aminotransferase 20 U/L (7-40); Albumin 4.6 g/dL (3.2-4.8); Alkaline Phosphatase 107 U/L (46-116); Anion Gap 6 (5-15); Aspartate Aminotransferase 10 U/L (13-40); BUN/Creatinine Ratio 15.9 (10.0-20.0); Blood Urea Nitrogen 14 mg/dL (9-23); Calcium 9.6 mg/dL (8.7-10.4); Carbon Dioxide 27 mmol/L (20-31); Chloride 107 mmol/L (98-107); Cholesterol 157 mg/dL (< 200); Creatinine, Urine 89.31 mg/dL (30.0-125.0); Glucose 134 mg/dL (74-106); LDL Cholesterol 80 mg/dL (< 100); Potassium 4.3 mmol/L (3.5-5.1); Sodium 140 mmol/L (136-145); Triglycerides 151 mg/dL (< 150)
[2024-03-16 09:15] LABS: Bilirubin, Total 0.4 mg/dL (0.2-1.0); HDL Cholesterol 58 mg/dL (40-59); Total Protein 7.1 g/dL (5.7-8.2)
[2024-03-16 10:28] LABS: Prostate Specific Antigen 2.34 ng/mL (0.0-4.0)
[2024-03-16 10:32] LABS: Free T4 (Free Thyroxine) 1.31 ng/dL (0.89-1.76)
== END | disposition home or self-care (01) ==
LOC: LAB 08:03
PROVIDERS: ATTEND Internal Medicine
DX: I10 Essential (primary) hypertension (principal); E11.51 Type 2 diabetes mellitus with diabetic peripheral angiopathy without gangrene; E11.65 Type 2 diabetes mellitus with hyperglycemia
CPT/HCPCS: 36415; 80053; 80061; 81001; 82043; 82570; 82607; 83036; 84153; 84439; 84443; 85025; 85652

== ENCOUNTER → 2024-09-07 | Outpatient (CLI) | payer OTHER ==
[2024-09-07 14:43] LABS: Basophils # (auto) 0 10 ^3/uL (0-0.2); Basophils % (auto) 0.5 % (0.0-2.0); Eosinophils # (auto) 0.1 10 ^3/uL (0-0.8); Eosinophils % (auto) 1.2 % (0.0-7.0); Hematocrit 40.7 % (41.0-53.0); Hemoglobin 13.3 g/dL (13.5-17.5); Lymphocytes % (auto) 25.8 % (10.0-50.0); Mean Corpuscular Hemoglobin 29.2 pg (28.0-32.0); Mean Corpuscular Hgb Conc. 32.6 g/dL (32.0-36.0); Mean Corpuscular Volume 89.7 fL (80.0-100.0); Monocytes # (auto) 0.6 10 ^3/uL (0-1.3); Neutrophils # (auto) 5.1 10 ^3/uL (1.6-8.6); Neutrophils % (auto) 64.5 % (37.0-80.0); Platelet Count (auto) 375 10^3/uL (140-450); Red Blood Cells 4.53 10^6/uL (4.5-5.90); Red Cell Distribution Width 14.3 % (11.8-14.3); White Blood Cell 7.9 10^3/uL (4.4-10.8)
[2024-09-07 15:12] LABS: Chloride 100 mmol/L (98-107); Potassium 4.4 mmol/L (3.5-5.1); Sodium 136 mmol/L (136-145)
[2024-09-07 15:13] LABS: Anion Gap 8 (5-15); Calcium 9.8 mg/dL (8.7-10.4); Carbon Dioxide 28 mmol/L (20-31)
[2024-09-07 15:18] LABS: BUN/Creatinine Ratio 16.2 (10.0-20.0); Blood Urea Nitrogen 17 mg/dL (9-23); Glucose 225 mg/dL (74-106)
[2024-09-07 15:19] LABS: CRP High Sensitivity 0.18 mg/dL (<1.0)
[2024-09-07 15:41] LABS: Erythrocyte Sedimentation Rate 16 mm/hr (0-20)
== END | disposition home or self-care (01) ==
LOC: LAB 14:18
PROVIDERS: ATTEND Internal Medicine
DX: R19.7 Diarrhea, unspecified (principal)
CPT/HCPCS: 36415; 80048; 85025; 85652; 86141

== ENCOUNTER → 2024-09-10 | Outpatient (CLI) | payer OTHER | END | disposition home or self-care (01) | LOC: LAB 12:08 | PROVIDERS: ATTEND Internal Medicine | DX: R19.7 Diarrhea, unspecified (principal) | CPT/HCPCS: 87493 ==

== ENCOUNTER 2024-11-21 09:24 | Outpatient (CLI) | payer OTHER ==
[~2024-11-21] VITALS: Ht 167.6 cm; Wt 68.0 kg
[2024-11-21] MEDS: REGADENOSON 0.4 MG/5 ML SYRG IV ONE ×2 (11:12)
--- NOTE | 2024-11-26 07:21 | DVHSR ---
APPROVED REPORT Exam: Nuclear Stress Test Indication: Chest pain BMI: 0 Medical History Medical History: HTN, Hyperlipidemia, PVP Allergies: No known drug allergies Stress Test Details Stress Test: Pharmacologic stress testing performed using 0.4 mg of regadenoson per 5 mL given IV ov er 10 seconds. HR Resting HR: 96 bpmMax Heart Rate (APMHR): 146.983210 bpm Max HR Achieved: 113 bpmTarget HR (85% APMHR): 124.349382 bpm % of APMHR: 77.40 Recovery HR: 99 bpm BP Resting BP: 169/75 mmHg Recovery BP: 150/83 mmHg ECG Resting ECG: Sinus Rhythm Clinical Reason for Termination: Completed protocol Nurse Comments Recieved pt. from [employer]. A/Ox4 on RA. 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 PIV flushes well. Reviewed POC. Pt. verbalized understanding of procedure including risks and side ef fects, agrees for stress testing. Lexiscan stress test performed per protocol. [employer] tech administered Cardiolite. Pt. tolerated well . Pt. stable, no change on exam. VS returned to baseline. Transferred to [employer] via wheelchair w/ te ch. Stress ECG Conclusion lvef 75% small LV cavity fixed inferior wall defect noted NM EXAM: Myocardial Perfusion REST/STRESS Imaging Protocol: Rest Tc-99m/Stress Tc-99m 1 day Resting Data Rest SPECT myocardial perfusion imaging was performed in supine position 60 minutes following the int ravenous injection of 12.2 mCi of Tc-99m Sestamibi. Time of rest injection: 09:55 Date: 11/21/2024 Time of rest imagin:55 Date: 11/21/2024 Administration Route: IV Administration Site: Left Hand Pharmacologic Stress Pharmacologic stress test was performed by injecting Regadenoson 0.4 mg IV push followed by the intra venous injection of 33.0 mCi of Tc-99m Sestamibi. Time of stress injection: 11:10 Date: 11/21/2024 Time of stress imagin:10 Date: 11/21/2024 Administration Route: IV Administration Site: Left Hand Gated Stress SPECT was performed 60 minutes after stress injection. The images were gated to evaluate regional wall motion and calculate left ventricular ejection fracti on. Stress only was performed in the Supine position. Nuclear Conclusion Nuclear Findings: negative for ischemia lvef 75% small LV cavity fixed inferior wall defect noted
== END 2024-11-21 17:00 | disposition home or self-care (01) ==
LOC: XYW 09:24
PROVIDERS: ATTEND Internal Medicine
DX: R07.9 Chest pain, unspecified (principal); I10 Essential (primary) hypertension; E78.5 Hyperlipidemia, unspecified
CPT/HCPCS: 78452; 93017; A9500; J2785

== ENCOUNTER → 2024-11-27 | Outpatient (CLI) | payer OTHER | END | disposition home or self-care (01) | LOC: LAB 11:48 | PROVIDERS: ATTEND Internal Medicine | DX: Z12.11 Encounter for screening for malignant neoplasm of colon (principal) | CPT/HCPCS: 82270 ==

== ENCOUNTER 2024-12-12 09:04 | Outpatient (CLI) | payer OTHER ==
[2024-12-12 10:22] LABS: Blood Urea Nitrogen 14.0 mg/dL (9-23)
== END 2024-12-12 17:00 | disposition home or self-care (01) ==
LOC: LAB 09:04
PROVIDERS: ATTEND Internal Medicine
DX: R16.0 Hepatomegaly, not elsewhere classified (principal)
CPT/HCPCS: 36415; 82565; 84520

== ENCOUNTER → 2025-01-03 | Outpatient (CLI) | payer OTHER ==
[2025-01-03 10:23] LABS: Hematocrit 43.6 % (41.0-53.0); Hemoglobin 14.7 g/dL (13.5-17.5); Mean Corpuscular Hemoglobin 29.5 pg (28.0-32.0); Mean Corpuscular Volume 87.6 fL (80.0-100.0); Nucleated Red Blood Cells % 0.1 %
[2025-01-03 10:41] LABS: Urine Protein, UAD Negative (Negative)
[2025-01-03 10:54] LABS: Prostate Specific Antigen 2.04 ng/mL (0.0-4.0)
[2025-01-03 10:58] LABS: Free T4 (Free Thyroxine) 1.43 ng/dL (0.89-1.76)
[2025-01-03 11:01] LABS: Alanine Aminotransferase 16 U/L (7-40); Alkaline Phosphatase 84 U/L (46-116); Anion Gap 10 (5-15); BUN/Creatinine Ratio 15.7 (10.0-20.0); Blood Urea Nitrogen 16 mg/dL (9-23); Calcium 9.6 mg/dL (8.7-10.4); Carbon Dioxide 26 mmol/L (20-31); Chloride 103 mmol/L (98-107); Cholesterol 168 mg/dL (< 200); Potassium 4.4 mmol/L (3.5-5.1); Sodium 139 mmol/L (136-145); Total Protein 7.4 g/dL (5.7-8.2); Triglycerides 148 mg/dL (< 150)
[2025-01-03 11:02] LABS: Bilirubin, Total 0.5 mg/dL (0.2-1.0)
[2025-01-03 11:15] LABS: Albumin 5.1 g/dL (3.2-4.8); Glucose 147 mg/dL (74-106); HDL Cholesterol 62 mg/dL (40-59)
[2025-01-03 11:29] LABS: Uric Acid 4.9 mg/dL (3.7-9.2)
== END | disposition home or self-care (01) ==
LOC: LAB 09:41
PROVIDERS: ATTEND Internal Medicine
DX: I12.9 Hypertensive chronic kidney disease with stage 1 through stage 4 chronic kidney disease, or unspecified chronic kidney disease (principal); N18.30 Chronic kidney disease, stage 3 unspecified; E11.22 Type 2 diabetes mellitus with diabetic chronic kidney disease
CPT/HCPCS: 36415; 80053; 80061; 81001; 82043; 82607; 83036; 84153; 84439; 84443; 84550; 85025; 85652